=== PATIENT | female | born 1995 | race Caucasian/White ===

== ENCOUNTER 2021-01-10 15:53 | Outpatient (CLI) | payer OTHER ==
--- NOTE | 2021-01-10 17:47 | XRAY Report ---
PROCEDURE: Chest 2 View X-Ray INDICATIONS: COUGH TECHNIQUE: 2 view(s) of the chest. COMPARISON: None FINDINGS: Surgical changes and devices: None. Lungs and pleura: No pleural effusions or pneumothorax. Lungs are clear. Mediastinum: Mediastinal contours are normal. Heart size is normal. Bones and chest wall: No suspicious bony abnormalities. Soft tissues appear unremarkable. IMPRESSION: No source for chest pain identified radiographically. Of note, calcific tendinitis prese nt involving the left shoulder joint. Reviewed by: CLARI Mckinney on 01/10/2021 5:46 PM PDT Approved by: Derrick Dupree MD on 01/10/2021 5:46 PM PDT Station ID: [id number]
== END 2021-01-10 23:59 | disposition home or self-care (01) ==
LOC: DI.N 15:53
PROVIDERS: ATTEND Physician Assistant Medical
DX: R05 Cough (principal); M75.32 Calcific tendinitis of left shoulder

== ENCOUNTER 2021-01-10 16:26 | Outpatient (CLI) | payer OTHER | END 2021-01-10 23:59 | disposition home or self-care (01) | LOC: LAB.N 16:26 | PROVIDERS: ATTEND Physician Assistant Medical | DX: R07.9 Chest pain, unspecified (principal); R05 Cough; Z20.822 Contact with and (suspected) exposure to COVID-19 | CPT/HCPCS: 36415; 85379 ==

== ENCOUNTER 2021-01-11 10:44 | Emergency (ER) | payer OTHER ==
--- OUTSIDE RECORDS SUMMARY | 2021-01-11 10:47 | EXTERNAL MEDICAL SUMMARY RPT | Continuity of Care Document ---
:1995 Demographics Phone Unavailable Preferred Language Unknown Marital Status Unknown Worship Affiliation Unknown Race Unknown Ethnic Group Unknown Author Organization [facility] Address [address] [place] [address] Phone Care Team Providers Name Role Phone MILAN, Adolph Marshall, Unavailable Unavailable Janette, Test Results Unavailable Unavailable Allergies Encounters Medications date description facility 20210110 BENZONATATE All 20210110 BENZONATATE All 20210110 BENZONATATE All 20210110 BENZONATATE All Problems date description facility 20210110 Total score? All 20210110 Former smoker All 20210110 Details of drug misuse behavior All 20210110 D-DIMER All 20210110 Chest pain, unspecified All 20210110 Unspecified chest pain All 20210110 Cough All 20210110 Chest pain All 20210110 COVID19 Testing All 20210110 CHEST 2 VIEW All 20210110 Alcohol use All Procedures date description facility 20210110 D-DIMER All 20210110 D-DIMER All Results Vital Signs date measurement value source 20210110 weight_standard 140 lb 20210110 weight_metric 63.5 kg 20210110 temperature_standard 97.6 F 20210110 temperature_metric 36.44 C 20210110 respiration_rate 15 /min 20210110 height_standard 68 in 20210110 height_metric 172.72 cm 20210110 heart_rate 104 /min 20210110 BP_systolic 126 mm[Hg] [id number] BP_diastolic 88 mm[Hg] 20210110 BMI 21.36 kg/m2 20210110 weight_standard 140 lb 20210110 weight_metric 63.5 kg 20210110 temperature_standard 97.6 F 20210110 temperature_metric 36.44 C 20210110 respiration_rate 15 /min 20210110 height_standard 68 in [id number] height_metric 172.72 cm [id number] heart_rate 104 /min 20210110 BP_systolic 126 mm[Hg] [id number] BP_diastolic 88 mm[Hg] 20210110 BMI 21.36 kg/m2
--- NOTE | 2021-01-11 11:08 | ED Physician Documentation ---
PD HPI CHEST PAIN - Stated complaint Stated Complaint: CHEST PX - Chief complaint Chief Complaint: Cardiac - History obtained from History obtained from: Patient - Additional information Additional information: She developed sharp chest pain yesterday morning. Intermittent and worse when upright better with sitting. Pretty much has not been significant since 11 AM yesterday. There was no associated shortness of breath. There was some cough with it. She was seen at the walk-in clinic and a D-dimer was done with minimal elevation and referred here. Chest x-ray done there was negative. She denies pedal edema, calf pain, recent travel. No personal or family history of DVT/PE or heart disease. There is a small possibility of . Review of Systems Ten Systems: 10 systems reviewed and negative Constitutional: denies: Fever, Chills Nose: reports: Other (dry nose) PD PAST MEDICAL HISTORY - Past Medical History Past Medical History: No Cardiovascular: None Respiratory: None Neuro: None Endocrine/Autoimmune: None : None HEENT: None Psych: None Musculoskeletal: None Derm: None - Past Surgical History Past Surgical History: Yes Ortho: Other - Present Medications Home Medications: Ambulatory Orders Medication Instructions Recorded Confirmed No Known Home Medications 01/11/21 01/11/21 - Allergies Allergies/Adverse Reactions: Allergies Allergy/AdvReac Type Severity Reaction Status Date / Time No Known Drug Allergies Allergy Verified 01/11/21 10:49 - Social History Does the pt smoke?: No Smoking Status: Never smoker Does the pt drink ETOH?: Yes Does the pt have substance abuse?: Yes Substance Use and Type: Marijuana PD ED PE NORMAL - Vitals Vital signs reviewed: Yes - General General: Alert and oriented X 3, No acute distress - HEENT HEENT: PERRL, EOMI - Neck Neck: Supple, no meningeal sign, No bony TTP - Cardiac Cardiac: RRR, No murmur - Respiratory Respiratory: No respiratory distress, Clear bilaterally - Abdomen Abdomen: Soft, Non tender - Back Back: No CVA TTP, No spinal TTP - Derm Derm: Normal color, Warm and dry - Extremities Extremities: No edema, No calf tenderness / cord - Neuro Neuro: Alert and oriented X 3, Normal speech Results - Vitals Vitals: Vital Signs - 24 hr 01/11/21 01/11/21 01/11/21 10:50 11:18 13:29 Temperature 36.6 C Heart Rate 107 H 91 82 Respiratory 16 22 12 Rate Blood Pressure 144/94 H 130/84 H 108/70 O2 Saturation 100 99 98 Oxygen O2 Source Room air - EKG (time done) 1050 Rate: Rate (enter#) (104) Rhythm: Sinus tachycardia [place]: Normal Intervals: Normal [place] QRS: Normal Ischemia: Non specific changes - Labs Labs: Laboratory Tests 01/11/21 01/11/21 01/11/21 11:10 11:14 11:14 Sodium 137 Potassium 3.3 L Chloride 102 Carbon Dioxide 27 Anion Gap 8.0 BUN 12 Creatinine 0.6 Estimated GFR (MDRD) 120 Glucose 110 H Calcium 8.8 Troponin I High Sens < 2.3 L Urine HCG, Qual NEGATIVE PD MEDICAL DECISION MAKING - ED course ED course: 25-year-old woman came from urgent care with a very minimally elevated D-dimer in the setting of mild tachycardia but no other risk factors for PE. CT angiography was done and Departure - Departure Disposition: 01 Home, Self Care Clinical Impression: Chest pain Qualifiers: Chest pain type: precordial pain Qualified Code(s): R07.2 - Precordial pain Condition: Good Record reviewed to determine appropriate education?: Yes Instructions: ED Chest Pain NonCardiac Comments: Follow-up with your physician, return for new or worsening symptoms. Discharge Date/Time: 01/11/21 13:39
--- OUTSIDE RECORDS SUMMARY | 2021-01-11 11:19 | EXTERNAL MEDICAL SUMMARY RPT | Continuity of Care Document ---
:1995 Demographics Phone Unavailable Preferred Language Unknown Marital Status Unknown Gnosticist Affiliation Unknown Race Unknown Ethnic Group Unknown Author Organization [facility] Address [address] [place] [address] Phone Care Team Providers Name Role Phone [...] heart_rate 104 /min 20210110 BP_systolic 126 mm[Hg] [id number] BP_diastolic 88 mm[Hg] 20210110 BMI 21.36 kg/m2 20210110 weight_standard 140 lb 20210110 weight_metric 63.5 kg 20210110 temperature_standard 97.6 F 20210110 temperature_metric 36.44 C 20210110 respiration_rate 15 /min 20210110 height_standard 68 in [id number] height_metric 172.72 cm [id number] heart_rate 104 /min 20210110 BP_systolic 126 mm[Hg] [id number] BP_diastolic 88 mm[Hg] 20210110 BMI 21.36 kg/m2
[2021-01-11 11:37] LABS: HCG UR QUAL NEGATIVE
[2021-01-11 11:37] LABS: CALCIUM 8.8 mg/dL (8.5-10.3); CREATININE 0.6 mg/dL (0.4-1.0); POTASSIUM 3.3 mmol/L (3.5-5.0)
[2021-01-11] MEDS ORDERED: IOVERSOL 320 100 ML VIAL IVP ONE ×2 (12:12→16:39)
--- NOTE | 2021-01-11 12:50 | CT Report ---
PROCEDURE: ANGIO CHEST W/WO INDICATIONS: chest pain, high dimer, pe protocol CONTRAST: IV CONTRAST: Optiray 320 ml: 100 PO CONTRAST: *NO PO CONTRAST TECHNIQUE: After the administration of intravenous contrast, 2 mm thick sections acquired from the pulmonary api kera to the posterior costophrenic angles. 3-dimensional maximum intensity projection (MIP) coronal a nd sagittal reformats were then acquired through the thorax. For radiation dose reduction, the follow ing was used: automated exposure control, adjustment of mA and/or kV according to patient size. COMPARISON: None FINDINGS: Image quality: Excellent. Pulmonary arteries: Pulmonary arteries are normal in size, and demonstrate no intraluminal filling d efects to suggest central pulmonary embolism. Lungs and pleura: Lungs are clear. No pleural effusions or pneumothorax. Central and peripheral ai rways are patent. Mediastinum: Heart size is normal, without pericardial effusion. No mediastinal or hilar adenopathy . Thoracic aorta is normal in caliber and enhancement. Esophagus is normal in caliber, without hiat al hernia. Bones and chest wall: No suspicious bony lesions. Ribs and thoracic spine appear intact throughout. No axillary or supraclavicular adenopathy. The thyroid is normal in size and there are no incident al findings. Abdomen: Visualized upper abdominal solid organs appear normal in the early arterial phase of enhanc ement. IMPRESSION: Unremarkable CT chest angiogram. No evidence of pulmonary embolism, aortic dissection or aneurysm. Reviewed by: Pee Sewell MD on 01/11/2021 11:48 AM MARIUSZ Approved by: Pee Sewell MD on 01/11/2021 11:48 AM AKMICHELLE Station ID: [id number]
[2021-01-11 13:29] VITALS: BP 108/70
== END 2021-01-11 13:39 | disposition home or self-care (01) ==
LOC: ED 10:44
DX: R07.2 Precordial pain (principal); R00.0 Tachycardia, unspecified; R79.89 Other specified abnormal findings of blood chemistry
CPT/HCPCS: 36415; 71275; 80048; 81025; 84484; 93005; 99284; Q9967

== ENCOUNTER 2021-04-11 08:00 | Outpatient (CLI) | payer OTHER | END 2021-04-11 23:59 | disposition home or self-care (01) | LOC: LAB.N 08:00 | PROVIDERS: ATTEND Nurse Practitioner | DX: R07.0 Pain in throat (principal); R05 Cough; B34.9 Viral infection, unspecified; Z20.822 Contact with and (suspected) exposure to COVID-19 | CPT/HCPCS: 87070 ==